=== PATIENT | male | born 1960 | race Two or more races ===

== ENCOUNTER 2024-10-13 18:17 | Emergency (ER) | payer OTHER ==
[~2024-10-13] VITALS: Ht 177.8 cm; Wt 79.4 kg
[2024-10-13] MEDS ORDERED: TETANUS & DIPHTHERIA TOX,ADULT 0.5 ML VIAL IM ONE (19:00)
[2024-10-13] MEDS ORDERED: TETANUS DIPHTHERIA TOX. ADSOR 5 ML VIAL IM ONE (19:14)
[2024-10-13] MEDS ORDERED: LIDOCAINE HCL 1% 10ML VIAL PERCUT ONE (19:45)
[2024-10-13] MEDS ORDERED: LIDOCAINE HCL 1% 10ML VIAL ONE (19:50)
== END 2024-10-13 20:14 | disposition home or self-care (01) ==
LOC: ER 18:17
DX: S01.122A Laceration with foreign body of left eyelid and periocular area, initial encounter (principal); W18.39XA Other fall on same level, initial encounter; Y93.89 Activity, other specified; Y92.89 Other specified places as the place of occurrence of the external cause